=== PATIENT | female | born 1945 | race Caucasian/White ===

== ENCOUNTER 2017-09-01 10:51 | Outpatient (CLI) | payer MEDICARE | END 2017-09-01 10:52 | LOC: LABRHC 10:51 | PROVIDERS: ATTEND Family Medicine | DX: R30.0 Dysuria (principal); R35.0 Frequency of micturition | CPT/HCPCS: 87086 ==

== ENCOUNTER 2017-09-14 11:21 | Outpatient (CLI) | payer MEDICARE | END 2017-09-14 11:22 | LOC: LABRHC 11:21 | PROVIDERS: ATTEND Physician Assistant | DX: R30.0 Dysuria (principal) | CPT/HCPCS: 87086 ==

== ENCOUNTER 2018-01-01 13:46 | Emergency (ER) | payer SELFPAY ==
[2018-01-01 14:20] VITALS: BP 173/64
--- NOTE | 2018-01-01 14:46 | Diagnostic Imaging Report ---
[facility] [address] [facility].[address] [address] Report Submission Date: Jan 01, 2018 2:45:48 PM ROUTE AGENT Patient Study Name: TORRES ODELL Date: Jan 01, 2018 2:27:55 PM ROUTE AGENT Modality Type: CR Gender: F Description: SPINE : 45 Institution: [facility] Physician: BRAULIO TOLENTINO Examination: Plain film thoracic spine History: PATIENT STATES UPPER BACK PAIN AFTER FALL (Hx) / FALL FROM STANDING. UPPER BACK PAIN (DICOM Hx) / FALL FROM STANDING. UPPER BACK PAIN (Pt comments) Findings: 3 views of the thoracic spine demonstrate normal height. No anterior compression. Scattered osteophyte formation. Slight curvature the lower thoracic vertebral bodies to the right. No soft tissue abnormalities. Impression: Degenerative changes. No vertebral body compression deformity. Electronically signed on Jan 01, 2018 2:45:48 PM ROUTE AGENT by: Hemant VALENZUELA
--- NOTE | 2018-01-01 14:46 | Diagnostic Imaging Report ---
[facility] [address] [facility].[address] [address] Report Submission Date: Jan 01, 2018 2:44:37 PM FABRICATION AND ASSEMBLY SUPERVISOR Patient Study Name: TORRES ODELL Date: Jan 01, 2018 2:17:05 PM FABRICATION AND ASSEMBLY SUPERVISOR Modality Type: CR Gender: F Description: SPINE : 45 Institution: [facility] Physician: BRAULIO TOLENTINO Examination: Cervical spine History: PATIENT STATES FALL FROM STANDING. NECK PAIN. (Hx) / FALL FROM STANDING. NECK PAIN (DICOM Hx) / FALL FROM STANDING. NECK PAIN (Pt comments) Comparison exams: None available Findings: 4 views of the cervical spine demonstrate normal height and alignment. No anterior compression. No abnormal listhesis. Minimal facet degenerative changes and osteophyte formation. No odontoid abnormality. No prevertebral abnormality Impression: Mild degenerative changes. No acute appearing osseous abnormality Electronically signed on Jan 01, 2018 2:44:37 PM FABRICATION AND ASSEMBLY SUPERVISOR by: Hemant VALENZUELA
--- NOTE | 2018-01-01 14:52 | ED Physician Documentation ---
General Adult - HISTORIAN Historian: patient - HPI Stated Complaint: fall Chief Complaint: General Adult Onset: days ago (2) Timing: still present Severity: moderate Further Comments: yes (Pt is a 72 yo female who fell on ice 2 days ago and hit the back of her head. Pt c/o neck pain and mid back pain. She had a mild headache earlier.) - ROS CONST: no problems EYES/ENT: none CVS/RESP: none GI/: none MS/SKIN/LYMPH: other (neck pain, upper back pain, L hip soreness) NEURO/PSYCH: headache (mild, now improved) - PAST HX Past History: other (Depression, Fibromyalgia, GERD, HLD, HTN, Thyroid d/o, OA) Surgeries/Procedures: cholecystectomy, hysterectomy, other (cardiac cath without stent placement) Allergies/Adverse Reactions: Allergies Allergy/AdvReac Type Severity Reaction Status Date / Time levofloxacin [From Levaquin] Allergy Severe Weakness Verified 01/01/18 14:06 Home Medications: Ambulatory Orders Medication Instructions Recorded Cyanocobalamin (Vitamin B-12) 1,000 mcg PO DAILY u2 07/09/14 [B-12] - SOCIAL HX Smoking History: non-smoker - FAMILY HX Family History: No - VITAL SIGNS Vital Signs: Vital Signs Temp Pulse Resp BP Pulse Ox 98.1 F 56 L 24 173/64 99 01/01/18 14:09 01/01/18 14:09 01/01/18 14:09 01/01/18 14:09 01/01/18 14:09 - REVIEWED ASSESSMENTS Nursing Assessment Reviewed: Yes Vitals Reviewed: Yes Progress - Progress Progress: X-ray C-spine: Mild degenerative changes. No acute appearing osseous abnormality. X-ray T-spine: Degenerative changes. No vertebral body compression deformity. ED Results Lab/Radiology - Orders Orders: ED Orders Category Date Time Status C SPINE 2 OR 3 VIEWS [RAD] Stat Exams 01/01/18 Completed T SPINE 3 VIEWS [RAD] Stat Exams 01/01/18 Completed General Adult Physical Exam - PHYSICAL EXAM GENERAL APPEARANCE: mild distress EENT: eye inspection normal, pharynx normal, TM's nml NECK: normal inspection, supple, other (tenderness, cervical spine) RESPIRATORY: no resp distress, chest non-tender, breath sounds normal CVS: reg rate & rhythm, heart sounds normal ABDOMEN: soft, no organomegaly, normal bowel sounds BACK: normal inspection, other (tenderness thoracic region) SKIN: warm/dry, normal color EXTREMITIES: non-tender, normal range of motion, no evidence of injury NEURO: oriented X3, CN's nml as tested, motor nml, sensation nml Discharge Clincal Impression: fall, musculoskeletal pain Referrals: Jayce Veras MD [Primary Care Provider] - Condition: Stable Disposition: 01 HOME, SELF-CARE Decision to Admit: NO Decision Time: 15:00
== END 2018-01-01 14:59 | disposition home or self-care (01) ==
LOC: ED 13:46
DX: M79.1 Myalgia (principal); W19.XXXA Unspecified fall, initial encounter; Y92.9 Unspecified place or not applicable; Y93.9 Activity, unspecified; Y99.9 Unspecified external cause status
CPT/HCPCS: 72040; 72072; 99283

== ENCOUNTER 2018-10-23 14:18 | Outpatient (CLI) | payer MEDICARE ==
[2018-10-23 15:26] LABS: APPEARANCE,URINE CLEAR (CLEAR); COLOR,URINE YELLOW (YELLOW); OCCULT BLOOD,URINE TRACE-INTACT (NEGATIVE); UROBILINOGEN URINE 0.2 Eu (0.2-1.0)
== END 2018-10-23 14:20 ==
LOC: LAB 14:18
PROVIDERS: ATTEND Family Medicine
DX: R35.0 Frequency of micturition (principal)
CPT/HCPCS: 81002; 87086

== ENCOUNTER 2019-09-07 16:04 | Emergency (ER) | payer MEDICARE ==
[2019-09-07] MEDS ORDERED: ONDANSETRON HCL/PF 4 MG/ 2ML VIAL IVP ONE (16:17)
--- NOTE | 2019-09-07 16:27 | ED Physician Documentation ---
GI Bleed - HISTORIAN Historian: patient, spouse - [facility] Chief Complaint: Nausea,Vomiting,Diarrhea Additional Information: Very pleasant 74 year old presents to the ER with c/o n/v/d that started last night. She states that she ate some Indonesian food last night (lots of shrimp) and 2 hours later she started experiencing diarrhea and then vomiting. Denies any fever, chills, SOA, or chest pain. Onset: hours (started last night) Timing: sudden onset Severity: moderate - Associated Symptoms Description of Stools: other (liquid) Abdominal Pain: aching (from diarrhea and vomiting) Other Related Symptoms: nausea, vomiting - ROS CONST: no problems SKIN/LYMPH: denies: leg swelling CVS/RESP: none GI/: denies: problems urinating MS: none - PAST HX Past History: other (arthritis, insomnia) Other History: hypertension, other (hypothyroid, GERD, fibromyaglia, depression) Surgeries/Procedures: other (arthroscopy of knee, meniscal repair) Immunizations: UTD Allergies/Adverse Reactions: Allergies Allergy/AdvReac Type Severity Reaction Status Date / Time No Known Allergies Allergy Verified 09/07/19 16:31 Home Medications: Ambulatory Orders Medication Instructions Recorded Calcium Carb 500/Vit D 200 1 tab PO DAILY 09/07/19 [CALTRATE WITH VIT D] Cetirizine HCl [Zyrtec] 10 mg PO DAILY 09/07/19 Levothyroxine Sodium [Levo-T] 25 mcg PO DAILY 09/07/19 Ondansetron HCl Rapdis [Zofran Odt] 4 mg PO Q6H PRN #20 tab.rapdis 09/07/19 - SOCIAL HX Smoking History: non-smoker Alcohol Use: none Drug Use: none - FAMILY HX Family History: none - VITAL SIGNS Vital Signs: Vital Signs Temp Pulse Resp BP Pulse Ox 97.6 F 79 18 186/91 100 09/07/19 16:10 09/07/19 16:10 09/07/19 16:10 09/07/19 16:10 09/07/19 16:10 - REVIEWED ASSESSMENTS Nursing Assessment Reviewed: Yes Vitals Reviewed: Yes Progress - Progress Progress: 17:15 patient feeling better after liter of fluid and zofran; has had no vomiting or diarrhea; she was able to tolerate PO potassium ED Results Lab/Radiology - Lab Results Lab Results: Lab Results 09/07/19 09/07/19 09/07/19 16:30 16:30 16:30 WBC 11.30 K/ul K/ul (4.00-12.00) RBC 4.90 M/ul M/ul (3.90-5.20) Hgb 15.3 g/dL g/dL (11.5-16.0) Hct 44.2 % % (34.5-46.5) MCV 90.0 fl fl (80.0-100.0) MCH 31.1 pg pg (28.0-34.0) MCHC 34.5 g/dL g/dL (30.0-36.0) RDW 13.5 % % (11.3-14.3) Plt Count 258 K/mm3 K/mm3 (130-400) Neut % (Auto) 75.4 % % (39.0-79.0) Lymph % (Auto) 17.9 % % (16.0-50.0) [place] % (Auto) 5.3 % % (0.0-11.0) Eos % (Auto) 0.8 % % (0.0-6.8) Baso % (Auto) 0.6 % % (0.0-1.5) Neut # (Auto) 8.5 # k/uL H # k/uL (1.4-7.7) Lymph # (Auto) 2.0 # k/uL # k/uL (0.6-4.0) [place] # (Auto) 0.6 # k/uL # k/uL (0.0-0.9) Eos # (Auto) 0.1 # k/uL # k/uL (0.0-0.6) Baso # (Auto) 0.1 # k/uL # k/uL (0.0-0.5) Sodium 142 mmol/L mmol/L (137-145) Potassium 2.7 mmol/L L mmol/L (3.5-5.1) Chloride 100 mmol/L mmol/L (98-107) Carbon Dioxide 22 mmol/L mmol/L (22-30) Anion Gap 22.7 BUN 6 mg/dL L mg/dL (7-17) Creatinine 0.54 mg/dL mg/dL (0.52-1.04) Estimated Creat Clear 137 Est GFR ( Amer) > 60 (60 - ) Est GFR (Non-Af Amer) > 60 (60 - ) Glucose 137 mg/dL H mg/dL (74-106) Calcium 10.5 mg/dL H mg/dL (8.4-10.2) Total Bilirubin 1.5 mg/dL H mg/dL (0.2-1.3) AST 57 U/L H U/L (15-46) ALT 37 U/L H U/L (0-35) Alkaline Phosphatase 138 U/L H U/L (38-126) Total Protein 8.7 g/dL H g/dL (6.3-8.2) Albumin 5.0 g/dL g/dL (3.5-5.0) Lipase 36 U/L U/L (23-300) - Orders Orders: ED Orders Category Date Time Status Place IV Lock 1T Care 09/07/19 16:17 Active CBC/PLATELET/DIFF Routine Lab 09/07/19 16:30 Completed CMP Routine Lab 09/07/19 16:30 Completed LIPASE Stat Lab 09/07/19 16:30 Completed URINALYSIS Routine Lab 09/07/19 17:15 Ordered 0.9 % Sodium Chloride [Normal Saline] 1,000 ml Med 09/07/19 16:17 Active IV Q1H Ondansetron HCl/Pf [Zofran] Med 09/07/19 16:17 Discontinued 4 mg IVP NOW ONE Potassium Chloride [Klor-Con M20] Med 09/07/19 16:55 Discontinued 40 meq PO NOW ONE Abdominal Pain Physical Exam - Physical Exam General Appearance: alert, mild distress EENT: eye inspection normal, ENT inspection normal, pharynx normal, [place] NECK: normal inspection, supple RESPIRATORY: no resp distress, breath sounds normal CVS: heart sounds normal, equal pulses, no JVD ABDOMEN: soft, normal bowel sounds, non-tender BACK: normal inspection SKIN: warm/dry, pallor EXTREMITIES: non-tender, normal range of motion NEURO: oriented X3, CN's nml as tested, motor nml, sensation nml, mood/affect nml, cognition normal Vital Signs: Vital Signs Temp Pulse Resp BP Pulse Ox 97.6 F 79 18 186/91 100 09/07/19 16:10 09/07/19 16:10 09/07/19 16:10 09/07/19 16:10 09/07/19 16:10 Discharge Clincal Impression: Hypovolemia associated with vomiting, Diarrhea, Hypokalemia due to excessive gastrointestinal loss of potassium Prescriptions: Ondansetron HCl Rapdis [Zofran Odt] 4 mg PO Q6H PRN #20 tab.rapdis PRN Reason: Nausea / Vomiting Referrals: Jayce Veras MD [Primary Care Provider] - 2 Days Additional Instructions: Take Zofran 4mg by mouth every 6 hours as needed for nausea Sips of water; start off with clear liquids and advance diet as tolerated; start with toast and crackers Follow up with PCP next week for re-evaluation Condition: Good Disposition: 01 HOME, SELF-CARE Decision to Admit: NO Decision Time: 17:26
[2019-09-07] MEDS: 0.9 % SODIUM CHLORIDE 1,000 ML IV ONE (16:28)
[2019-09-07 16:45] LABS: BASOPHILS % 0.6 % (0.0-1.5); NEUTROPHILS # 8.5 # k/uL (1.4-7.7)
[2019-09-07 16:49] LABS: eGFR (Non-African) > 60
[2019-09-07] MEDS: POTASSIUM CHLORIDE 20 MEQ TABLET.ER PO ONE (17:00)
[2019-09-07 17:32] VITALS: BP 180/91
[2019-09-08 07:19] LABS: OCCULT BLOOD,URINE TRACE-INTACT (NEGATIVE); UROBILINOGEN URINE 0.2 Eu (0.2-1.0)
== END 2019-09-07 17:24 | disposition home or self-care (01) ==
LOC: ED 16:04
DX: E86.1 Hypovolemia (principal); E87.6 Hypokalemia; R11.2 Nausea with vomiting, unspecified
CPT/HCPCS: 80053; 81002; 83690; 85025; 96361; 96374; 99284; A9270; J7030; S1016

== ENCOUNTER 2019-09-16 15:04 | Outpatient (CLI) | payer MEDICARE ==
[2019-09-16 17:02] LABS: BASOPHILS % 0.4 % (0.0-1.5); NEUTROPHILS # 7.1 # k/uL (1.4-7.7)
[2019-09-16 17:20] LABS: eGFR (Non-African) > 60
--- NOTE | 2019-09-16 18:01 | Diagnostic Imaging Report ---
PATIENT MR#: [id number] PATIENT PATIENT NAME: TORRES ODELL DATE OF : 1945 REFERRING PHYSICIAN: Jayce Veras EXAM DATE: 09/16/2019 ACCESSION NUMBER: [id number] EXAM DESCRIPTION: CT ABD PELVIS W/ CON Indication: Nausea, vomiting, diarrhea for 1 week. Technique: Multiple axial CT images of the abdomen and pelvis were obtained following IV contrast adm inistration. Sagittal and coronal reformatted images were also submitted. 88 cc Omnipaque 350 was administered int ravenously. Automated exposure control was used for dose reduction. Comparison: None available. Findings: Inferior chest: The partially visualized lung bases demonstrate no mass or consolidation. Abdomen: There is a small hiatal hernia with mild circumferential thickening of the distal esophagus. The patient is status post cholecystectomy with resultant prominence of the common bile duct and intrahepatic biliar y tree. There is a 2.4 cm lobulated cystic focus in the right lobe of the liver. There is a 12 mm cyst in the posterior aspect of the right lobe of the liver. The spleen, adrenal glands, kidneys, atrophic pancreas, and stomach demonstrate no acute abnormalities. There is a subcentimeter hypodensity at the left kidney superior pole which may repres ent a simple cyst. Pelvis: There are numerous colonic diverticula predominantly in the sigmoid colon. However, there is no evidence of diverticulitis. There are small oval shaped high densities seen in the cecum which are felt represent medication tablets. The appendix is not definitely visualized however there are no inflammatory changes in the r ight lower quadrant. There is no small bowel obstruction or small bowel dilatation. The bladder is unremarkable. There is no free fluid or free air in the abdomen or pelvis. The uterus and ovaries are not visualized, presumably leonid gically absent. There is mild scarring seen over the midline lower anterior abdomen. The osseous structures of the ab domen and pelvis demonstrate no acute abnormalities. There are severe degenerative changes at L5-S1 with an interverte bral disc spacer, anterior fusion hardware, and left sided transpedicular fixation hardware posteriorly. There is a jose miguel ral stimulator generator in the right posterior back soft tissues with 2 leads extending in the dorsum the lumbar an d thoracic spinal canal. There are mild atherosclerotic calcifications of the abdominal aorta and its branch vessels. T here is a mild rightward convex scoliosis centered at the thoracolumbar junction. Impression: 1. Small hiatal hernia with circumferential thickening of the distal esophagus suggesting esophagitis . 2. Colonic diverticulosis without evidence of diverticulitis. 3. Status post cholecystectomy, hysterectomy, and lumbar spine surgery. Read by: Dr. Nishant Trujillo Transcribed by: Nishant Trujillo Transcribed Date: 09/16/2019 6:01:06 PM Electronically signed by: Dr. Nishant Trujillo Date signed: 09/16/2019 6:01:06 PM
== END 2019-09-16 15:09 ==
LOC: LAB 15:04
PROVIDERS: ATTEND Family Medicine
DX: R74.0 Nonspecific elevation of levels of transaminase and lactic acid dehydrogenase [LDH] (principal); R10.12 Left upper quadrant pain; R10.13 Epigastric pain; R19.7 Diarrhea, unspecified; R11.0 Nausea
CPT/HCPCS: 36415; 74177; 80053; 83690; 85025; Q9967